=== PATIENT | female | born 1990 | race Caucasian/White ===

== ENCOUNTER 2016-11-07 09:27 | Emergency (ER) | payer SELFPAY ==
--- NOTE | 2016-11-14 08:15 | ER ---
ADMIT: 11/07/2016 RM/LOC: ER [facility] MR#: [id number] [facility] [id number] [place] [address] [place] [address] Emergency Room Report SEX: F AGE: 25 : 1990 DATE: 11/07/2016 A 25-year-old comes with vomiting, diarrhea, and crampy abdominal pain for the past 24 hours. Her had recently gotten over the same illness. See T- sheet for history and physical. The patient is diagnosed with gastroenteritis. CBC was normal. UA was unremarkable. Influenza was negative. She was given a prescription for Zofran. Encouraged to drink fluids, and follow up this coming week if not better. Anup Mac MD/ mykel JOB #: [id number] CC: Anup Mac MD, Attending Physician Deepak Macdonald MD, Family Physician
== END 2016-11-07 12:30 | disposition home or self-care (01) ==
LOC: ER 09:27
DX: K52.9 Noninfective gastroenteritis and colitis, unspecified (principal); J45.909 Unspecified asthma, uncomplicated; F17.210 Nicotine dependence, cigarettes, uncomplicated; Z79.899 Other long term (current) drug therapy